=== PATIENT | male | born 1970 | race Caucasian/White ===

== ENCOUNTER 2017-09-01 11:21 | Inpatient (IN) | payer OTHER ==
[~2017-09-01] VITALS: Ht 180.3 cm; Wt 80.2 kg
[~2017-09-01 11:21] MED LIST: CYAN10005 PO
[2017-09-01] MEDS ORDERED: CHOL400C PO (11:52)
[2017-09-01 12:21] LABS: ALBUMIN 3.9 g/dL (3.4-5.0); ANION GAP 5 mmol/L (5-15); CALCIUM 8.5 mg/dL (8.5-10.1); CHLORIDE 106 mmol/L (98-107)
[2017-09-01 12:22] LABS: BASOPHILS # (AUTO) 0.03 x10^3/uL (0-0.1); BASOPHILS % (AUTO) 1 % (0-1); EOSINOPHILS # (AUTO) 0.06 x10^3/uL (0-0.4); EOSINOPHILS % (AUTO) 1 % (1-7); LYMPHOCYTES # (AUTO) 1.25 x10^3/uL (1-3.4); LYMPHOCYTES % (AUTO) 25 % (22-44); MD NO; MEAN CORPUSCULAR HEMOGLOBIN 29.6 pg (27.5-34.5); MEAN CORPUSCULAR VOLUME 89.6 fL (81-97); MEAN PLATELET VOLUME 8.7 fL (7.4-10.4); MONOCYTES # (AUTO) 0.45 x10^3/uL (0.2-0.8); MONOCYTES % (AUTO) 9 % (2-9); NEUTROPHILS # (AUTO) 3.31 x10^3/uL (1.8-6.8); NEUTROPHILS % (AUTO) 65 % (42-75); PLATELET COUNT 219 x10^3/uL (130-400); RED BLOOD COUNT 4.73 x10^6/uL (4.38-5.82); RED CELL DISTRIBUTION WIDTH 15.3 % (9.4-14.8)
[2017-09-01 12:26] LABS: TROPONIN I < 0.015 ng/mL (0.000-0.045)
[2017-09-01] MEDS: SODIUM CHLORIDE 0.9% 1,000 ML IV SCH ×2 (13:19→21:19)
[2017-09-01] MEDS ORDERED: ZOLPIDEM 5MG TABLET PO PRN (13:30)
[2017-09-01] MEDS ORDERED: CEFAZOLIN PMX 1GM/50ML 50 ML IVPB ONE (13:30)
[2017-09-01] MEDS ORDERED: ONDANSETRON 2MG/ML, 2ML IVPush PRN (13:30)
[2017-09-01] MEDS ORDERED: ACETAMINOPHEN 325 MG TABLET PO PRN (13:30)
[2017-09-01] MEDS ORDERED: CEFAZOLIN PMX 1GM/50ML 50 ML ONE ×2 (13:38→13:44)
[2017-09-01] MEDS ORDERED: MIDAZOLAM 1 MG/ML, 2ML ONE (13:44)
[2017-09-01] MEDS ORDERED: FENTANYL PF 100 MCG/2ML ONE ×2 (13:44→14:37)
[2017-09-01] MEDS ORDERED: LIDOCAINE 2%, 20ML ONE ×2 (13:44→15:04)
[2017-09-01] MEDS ORDERED: CEFAZOLIN 1,000 MG ONE (13:44)
[2017-09-01] MEDS ORDERED: ONDANSETRON 2MG/ML, 2ML ONE (14:20)
[2017-09-01] MEDS ORDERED: HYDROcodone/APAP 5/325 TABLET PO PRN (15:30)
[2017-09-01 16:11] VITALS: BP 133/84
[2017-09-01 18:29] VITALS: BP 118/78
[2017-09-01] MEDS: CEFAZOLIN PMX 1GM/50ML 50 ML IVPB SCH (21:56)
[2017-09-01] MEDS: SODIUM CHLORIDE FLUSH 10ML SYR IVF SCH (22:02)
[2017-09-02 02:03] VITALS: BP 125/72
[2017-09-02] MEDS: SODIUM CHLORIDE 0.9% 1,000 ML IV SCH (05:19)
[2017-09-02] MEDS: CEFAZOLIN PMX 1GM/50ML 50 ML IVPB SCH (05:40)
[2017-09-02 07:02] VITALS: BP 97/58
[2017-09-02] MEDS ORDERED: ACET325T14 PO (08:33)
[2017-09-02] MEDS: SODIUM CHLORIDE FLUSH 10ML SYR IVF SCH (09:00)
== END 2017-09-02 10:01 | disposition home or self-care (01) | DRG 244 ==
LOC: ED 13:01 → EDIP 13:19 → 5SO 15:33 → DCLOUNGE 09-02 09:42
PROVIDERS: ADMIT Internal Medicine Cardiovascular Disease; ATTEND Internal Medicine Cardiovascular Disease
PROC: 02H63JZ Insertion of Pacemaker Lead into Right Atrium, Percutaneous Approach (ICD-10-PCS; principal; 2017-09-01)
PROC: 0JH606Z Insertion of Pacemaker, Dual Chamber into Chest Subcutaneous Tissue and Fascia, Open Approach (ICD-10-PCS; 2017-09-01)
PROC: 02HK3JZ Insertion of Pacemaker Lead into Right Ventricle, Percutaneous Approach (ICD-10-PCS; 2017-09-01)
PROC: 02P Heart and Great Vessels, Removal (ICD-10-PCS; 2017-09-01)
DX: I46.9 Cardiac arrest, cause unspecified (principal); W18.39XA Other fall on same level, initial encounter; Y93.89 Activity, other specified; Y92.89 Other specified places as the place of occurrence of the external cause; Y99.8 Other external cause status
CPT/HCPCS: 33208; 33284; 36415; 71045; 80048; 82040; 84484; 85025; 93005; 99156; 99157; 99285; C1779; C1785; C1892; J0690; J2250; J2405; J3010; J3490